=== PATIENT | female | born 1955 | race Caucasian/White ===

== ENCOUNTER 2018-07-30 14:21 | Emergency (ER) | payer MEDICAID ==
[~2018-07-30] VITALS: Ht 160 cm; Wt 54.4 kg
[2018-07-30 14:21] VITALS: BP_SYST 151
--- NOTE | 2018-07-30 14:21 | NUR ---
BROUGHT BACK TO BED #8 AND TRIAGED. REPORT GIVEN TO ALIYAH
--- NOTE | 2018-07-30 14:30 | NUR ---
patient arrived AOx4 from home with family at bedside. patient is vietnamese speaking only. patient c/o red bump on right knee x 1 year. patients knee is red and not warm to the touch. patient has equal bilateral lower pulses +2 without edema of any kind at the time of assessment. no grinding popping felt at the time of inspection of joint. no other complaint or injury at this time.
--- NOTE | 2018-07-30 15:05 | NUR ---
DR VALENZUELA AT BEDSIDE FOR EVALUATION
[2018-07-30] MEDS ORDERED: LIDOCAINE 1% 10 MG/ML, 20 ML MDV INJ ONE (15:15)
--- NOTE | 2018-07-30 15:17 | NUR ---
I&D Procedure done by Dr Reggie thomason using sterile technique. Lidocaine 1% used. Wound packed with . Adaptic, 4x4 and devang to wound. less than 20cc amt of bleeding noted. Wound care discussed w/ patient. Pt tolerated procedure well.
[2018-07-30] MEDS ORDERED: cefTRIAXone 1 GM VIAL IM ONE (15:45)
[2018-07-30] MEDS ORDERED: DIPH-TET-PERTUS Vaccine 0.5 ML VIAL (ADACEL) I.M. ONE (15:45)
--- NOTE | 2018-07-30 16:00 | NUR ---
Patient resting quietly in no acute distress, vital signs stable, respirations even and unlabored, skin warm and dry to touch. Family remains at bedside, awaiting dispo.
[2018-07-30 16:45] VITALS: BP_SYST 140
--- NOTE | 2018-07-30 16:45 | NUR ---
Patient given written and verbal discharge instructions and verbalizes understanding. ER MD discussed with patient the results and treatment provided. Patient in stable condition. ID arm band removed. Rx of Bactrim DS, Keflex given. Patient educated on pain management and to follow up with PMD. Pain Scale 0. Opportunity for questions provided and answered. Medication side effect fact sheet provided. Patient left ER in no acute distress, able to ambulate without difficulty with slow, steady gait with family at her side. Family to drive patient home. No adverse reaction noted to medication.
== END 2018-07-30 16:45 | disposition home or self-care (01) ==
LOC: SED 14:21
DX: L02.415 Cutaneous abscess of right lower limb (principal); L03.115 Cellulitis of right lower limb; E11.9 Type 2 diabetes mellitus without complications; R03.0 Elevated blood-pressure reading, without diagnosis of hypertension; Z90.710 Acquired absence of both cervix and uterus
CPT/HCPCS: 10060; 90471; 90715; 96372; 99283; J0696; J2001; J7120

== ENCOUNTER 2019-01-17 21:16 | Emergency (ER) | payer SELFPAY ==
[~2019-01-17] VITALS: Ht 160 cm; Wt 63.5 kg
[2019-01-17 21:28] VITALS: BP_SYST 150
== END 2019-01-17 21:37 | disposition left against medical advice (07) ==
LOC: SED 21:16
DX: R05 Cough (principal); Z53.21 Procedure and treatment not carried out due to patient leaving prior to being seen by health care provider
CPT/HCPCS: J7030